=== PATIENT | male | born 1970 | race Two or more races ===

== ENCOUNTER 2020-05-03 11:43 | Outpatient (REF) | payer OTHER, SELFPAY | END 2020-05-03 11:44 | disposition home or self-care (01) | LOC: HO.LAB 11:43 | PROVIDERS: Visit Provider Internal Medicine | DX: Z20.828 Contact with and (suspected) exposure to other viral communicable diseases (principal) | CPT/HCPCS: C9803; U0003 ==

== ENCOUNTER 2020-05-23 06:17 | Outpatient (REF) | payer OTHER, SELFPAY | END 2020-05-23 06:18 | disposition home or self-care (01) | LOC: HO.LAB 06:17 | PROVIDERS: Visit Provider Internal Medicine | DX: Z20.828 Contact with and (suspected) exposure to other viral communicable diseases (principal) | CPT/HCPCS: C9803; U0003 ==

== ENCOUNTER 2023-11-04 08:54 | Outpatient (REF) | payer OTHER, SELFPAY ==
[2023-11-04 14:17] LABS: MANUAL DIFF FLAG NO
[2023-11-04 14:30] LABS: Basophils Percent Auto 0.7 % (0-2); Eosinophils Absolute Auto 0.1 X10*3/uL (0.0-0.4); Hematocrit 40.7 % (42.0-52.0); Hemoglobin 13.9 g/dl (14.0-18.0); Imm Gran Abs Auto 0.01 X10*3/uL (0.00-0.03); Imm Gran Pct Auto 0.2 % (0.0-0.4); Lymphocytes Absolute Auto 1.7 X10*3/uL (1.2-4.9); Lymphocytes Percent Auto 38.6 % (20-40); Mean Corpuscular HGB Conc 34.2 g/dl (31.0-36.0); Mean Corpuscular Hemoglobin 29.8 pg (27.0-33.0); Mean Corpuscular Volume 87.3 fL (80.0-98.0); Mean Platelet Volume 10.2 fL (9.4-12.4); Monocytes Absolute Auto 0.5 X10*3/uL (0.1-1.2); Monocytes Percent Auto 11.2 % (2-11); Neutrophils Percent Auto 46.3 % (45-73); Platelet Count 244 X10*3/uL (160-400); Red Blood Count 4.66 X10*6/uL (4.60-5.80); White Blood Count 4.3 X10*3/uL (4.8-10.8)
[2023-11-04 14:37] LABS: Estimated Average Glucose 114 mg/dL; Hemoglobin A1c % 5.6 % (<6.0)
[2023-11-04 15:02] LABS: Alanine Aminotransferase 35 U/L (0-40); Albumin Level 4.1 g/dL (3.5-5.0); Alkaline Phosphatase 68 U/L (39-117); Anion Gap 16 (12-20); Aspartate Amino Transferase 33 U/L (5-37); Bilirubin Total 0.4 mg/dL (0.0-1.0); Blood Urea Nitrogen 12 mg/dL (9-16); Calcium 9.3 mg/dL (8.4-10.2); Carbon Dioxide 21 mmol/L (22-29); Chloride 105 mmol/L (96-108); Cholesterol 215 mg/dL (<200); Estimated Glomerular Filt Rate > 60; Glucose Random 144 mg/dL (60-115); HDL Cholesterol 33 mg/dL (>40); LDL Cholesterol Calculated 149 mg/dL (<100); Potassium 3.9 mmol/L (3.3-5.1); Sodium 138 mmol/L (135-145); Total Protein 7.3 g/dL (6.5-8.0); Triglycerides 167 mg/dL (<150)
[2023-11-04 15:20] LABS: TSH reflex Free T4 1.81 uIU/mL (0.32-4.0)
[2023-11-04 15:25] LABS: Prostate Specific Antigen 0.69 ng/mL (<0.05-4.0)
[2023-11-05 04:32] LABS: ~HepC Num1 0.15 S/CO (0.00-0.79); ~Hepatitis C Antibody Nonreactive (Nonreactive)
[2023-11-07 18:08] LABS: HIV RNA PCR Qn Copies Not Detected Copies/mL; HIV RNA PCR Qn Log Copies Not Detected Log cps/mL
[2023-11-08 17:02] LABS: Testosterone, Free 63.7 pg/mL (35.0-155.0); Testosterone, Total 299 ng/dL (250-1100)
== END 2023-11-04 08:55 | disposition home or self-care (01) ==
LOC: HO.CHCLDS 08:54
PROVIDERS: Visit Provider Internal Medicine
DX: Z12.5 Encounter for screening for malignant neoplasm of prostate (principal); E66.3 Overweight; R53.83 Other fatigue; C61 Malignant neoplasm of prostate
CPT/HCPCS: 36415; 80053; 80061; 83036; 84153; 84402; 84403; 84443; 85025; 86803; 87536; 87900

== ENCOUNTER 2024-01-08 11:10 | Outpatient (AMB) | payer MEDICAID, SELFPAY ==
--- NOTE | 2024-01-08 07:58 | MHC.OFFVIS ---
Intake Visit Reasons: Former Smoker Allergies No Known Allergies Allergy (Unverified 03/15/20 16:14) HPI HPI Former Smoker: Details: Initial visit for this 53yo former smoker with a 30+PYH. Patient started smoking at age 15 for 38 years at 1ppd. He quit 12/07/2023 - using Chantix. . Denies marijuana use. Denies second hand smoke exposure. Denies exposure to chemicals or substances like asbestos. . Denies known family history of lung cancer. Denies personal history of cancers. Denies chest CT in last year. . Denies recent travel outside the [place]. Denies recent respiratory illness or recent hospitalization for respiratory issues. Denies testing positive for COVID. Admits receiving COVID Vaccine. . Denies fever, chills, new/worsening cough, hemoptysis, hoarseness or dysphagia. Denies significant chest pain, significant dyspnea or unintentional weight loss. Patient Lung Cancer Screening Questionnaire reviewed with patient by provider. . Shared Decision Making Completed. Patient meets criteria. Discussed in detail with patient, the risk vs benefit of LDCT screening. Patient consents to proceed with scan. Discussed and encouraged continued smoking cessation. [facility] Medical History (Updated 01/08/24 @ 11:35 by Jade Landrum PA-C) Nicotine dependence, cigarettes, uncomplicated Surgical History (Updated 12/03/23 @ 10:07 by Jade Landrum PA-C) History of cholecystectomy Social History (Updated 01/08/24 @ 11:35 by Jade Landrum PA-C) Patient Tobacco Use Status: Former Tobacco user Tobacco use type: Cigarette Years Smoked: (onset 15yo, 1ppd x 38yrs, 30+PYH -quit 12/07/23) Assessment & Plan Assessment & Plan (1) Nicotine dependence, cigarettes, uncomplicated: Comment: (recently quit - onset 15yo, 1ppd x 38yrs, 30+PYH - quit 11/2023) Code(s): F17.210 - Nicotine dependence, cigarettes, uncomplicated Category: Medical Plan: - SDM visit completed today in office. - Patient meets criteria for LDCT for lung cancer screening purposes and is asymptomatic. - Smoking cessation counseling offered. Patients can always call [phone]. - Will arrange for a LDCT scan of the chest for screening purposes at [facility]. - Risks, benefits, and alternatives were discussed in detail and the patient agrees to proceed. - Risks discussed include but are not limited to: radiation exposure, anxiety during testing and while awaiting results, false negatives, false positives and possibility of additional intervention such as further imaging or surgical procedures for benign disease. - Benefits are obviously detection of lung cancer at an early stage which can lead to improved outcomes. - Discussed the importance of screening program compliance with adherence to yearly LDCT scan as scheduled - or sooner interval scans for personalized screening regimen. - Discussed follow up plan. Our office will send a letter discussing results and if needed set up phone call and office visit based on CT findings. - Patient educated on results categorization and the management decisions for suspicious findings potentially found on the screening LDCT scan. Any patient with a Lung RADS score of 3 or 4 will be reviewed by a multidisciplinary team at [facility] to form a plan of action in regards to scan findings. - If further work up is warranted for a suspicious lung finding this will be followed by the Lung Cancer Screening program in conjunction with the Thoracic Surgery Department at [facility]. - A copy of the office note and LDCT will be sent to the patient's PCP - as well as documentation on any associated further plans of care. - Incidental findings on LDCT are the PCP's responsibility. These findings are indicated with an S finding on the LDCT Assessment. A note discussing the findings will be sent to the PCP who is then responsible for further management. - All questions answered.? Coding Level of Care Code Lung Cancer Screening G0296 Diagnoses Nicotine dependence, cigarettes, uncomplicated F17.210
== END 2024-01-08 13:07 | disposition home or self-care (01) ==
PROVIDERS: Referring Provider Internal Medicine; Visit Provider Physician Assistant Medical
DX: F17.210 Nicotine dependence, cigarettes, uncomplicated (principal); Z87.891 Personal history of nicotine dependence
CPT/HCPCS: G0296

== ENCOUNTER 2024-01-08 11:33 | Outpatient (REF) | payer MEDICAID, SELFPAY ==
--- NOTE | ~2024-01-08 | CT_ITS ---
EXAMINATION: CT LOW-DOSE SCREENING CHEST WITHOUT CONTRAST CLINICAL INFORMATION: Personal history of nicotine dependence. The patient has a 68 pack-year history of smoking, having quit 3 years ago. COMPARISON: None available. TECHNIQUE: Multidetector volumetric CT imaging of the chest is performed on a Siemens SOMATOM Definition scanner without contrast using low dose technique. Additional 2D coronal and sagittal reformatted images and axial 3D maximum intensity projection (MIP) images are generated on the CT workstation. This CT examination was performed using dose optimization techniques as appropriate, variously including the following: *Automated exposure control *Adjustment of mA and/or kV according to patient size (this includes techniques or standardized protocols for targeted exams where dose is matched to indication/reason for exam; i.e. extremities or head) *Use of iterative reconstruction technique TOTAL EXAM DLP: 61 mGy-cm. CTDIvol: 1.75 mGy. Please note, due to [facility] contractual, systems, and staffing issues, a radiologist was not available for review and dictation until 02/16/2024. FINDINGS: PULMONARY NODULES: -3 mm nodule anterior right upper lobe, (series 5, image 129). -2 mm nodule posterior right upper lobe (series 5, image 310). -3 mm nodule medial right middle lobe (series 5, image 328). -3 mm nodule lateral left upper lobe (series 5, image 96). -2 mm nodule anterior left upper lobe (series 5, image 131). -3 mm groundglass nodule lateral posterior left upper lobe (series 5, image 163). -3 mm nodule left lower lobe laterally (series 5, image 332). -2 mm calcified granuloma posterior left lower lobe, (series 5, image 340). LUNGS: -Lungs well inspired and clear bilaterally. No consolidations or groundglass opacities. -No pleural effusions or pleural masses. -Central and small airways normal. MEDIASTINUM: -No abnormal lymphadenopathy. -Aorta is normal in caliber and course with minimal calcification. No aneurysm. -Main pulmonary artery is mildly prominent but otherwise normal. -Heart size is normal. No pericardial effusion. -There is mild thickening of the most distal esophagus which leads into a small type I hiatus hernia. This may suggest esophagitis. CORONARY ARTERY CALCIFICATION: Moderate left main, circumflex, and LAD calcifications. Mild RCA calcifications. THYROID GLAND: Unremarkable to the extent seen. CHEST WALL/AXILLA: Unremarkable. UPPER ABDOMEN: -Cholecystectomy. -No additional abnormalities allowing for limitations of low-dose technique. OSSEOUS STRUCTURES: No suspicious focal findings. CT/CT lung screening IMPRESSION: 1. A few scattered bilateral pulmonary nodules measuring up to 3 mm, statistically benign with less than 1% chance of malignancy. 2. No active lung disease. 3. Small type I hiatus hernia, with mild thickening of the distal esophagus, which could represent mild esophagitis. 4. No lymphadenopathy. 5. Additional ancillary findings as discussed in the body of the report. ASSESSMENT: 1. Lung-RADS Category 2: Benign appearance or behavior of nodules. 2. Lung-RADS Category S: None. RECOMMENDATION: Continued routine annual low-dose CT lung screening in 1 year is recommended. An order for CT CHEST LOW DOSE CANCER SCREENING ([id number]) can be placed.
== END 2024-01-08 11:34 | disposition home or self-care (01) ==
LOC: HO.CT 11:33
PROVIDERS: Visit Provider Physician Assistant Medical
DX: Z12.2 Encounter for screening for malignant neoplasm of respiratory organs (principal); Z87.891 Personal history of nicotine dependence
CPT/HCPCS: 71271; G0296

== ENCOUNTER → 2024-01-08 11:33 | Outpatient (BNV) | payer MEDICAID, SELFPAY | PROVIDERS: Visit Provider Radiology Diagnostic Radiology | DX: Z87.891 Personal history of nicotine dependence (principal) | CPT/HCPCS: 71271 ==

== ENCOUNTER 2024-03-10 15:00 | Outpatient (RCR) | payer MEDICAID, SELFPAY ==
--- NOTE | 2024-03-22 15:28 | MHC.PT.DC ---
[facility] [place] Office [place] Office [place] Office [address] Mary Brand [address] [phone] F: [phone] F: [phone] F: [phone] F: [phone] Physical Therapy Discharge Report Diagnosis: This is a 54 yo male presenting to skilled PT with a script for R knee pain. Date of Surgery: Date of Evaluation: 03/01/24 Date of Discharge: 03/22/24 Treatments to Date: 2 Cancellations to Date: 0 No Shows to Date: 0 Discharge Status: Visit Non-compliance Discharge Summary: no show/no call x4 visits. DC due to poor visit compliance and attendance policy Electronically signed by: Laquita Morris PT Please sign and return to therapist. Thank you for your referral.
== END 2024-03-22 15:28 | disposition home or self-care (01) ==
LOC: HO.PTCHIC 15:00
PROVIDERS: PCP Internal Medicine; Visit Provider Internal Medicine
DX: M25.561 Pain in right knee (principal)
CPT/HCPCS: 97110; 97162

== ENCOUNTER 2024-05-16 13:58 | Outpatient (RCR) | payer MEDICAID, SELFPAY ==
--- NOTE | 2024-04-26 16:07 | MHC.PT.EP ---
[facility] [place] Office [place] Office [place] Office [address] Mary Brand [address] [phone] F: [phone] F: [phone] F: [phone] F: [phone] Physical Therapy Plan of Care Date of Evaluation: 04/26/24 Date of Surgery: Diagnosis: R knee pain (per MD) Assessment: Maury is a 54 yo male who was referred by Dr. Jonathan Moon MD for Dx of chronic pain in right knee. Impairments include decreased and painful R knee ROM, weakness of R hip and knee, feeling unstable in the knee, and antalgic gait pattern resulting in his inability to bend, squat, navigate stairs, or ambulate for prolonged periods of time. These deficits are impacting his ability to participate in working in the [employer], exercising in the gym, and household ADLs. Pt will benefit from skilled PT to address impairments and meet their goals. Frequency and Duration: The patient will be seen 2x/week for 4 weeks Short Term Goals: 2 weeks Patient will be able to perform HEP to independently manage condition. Long-Term Goals: 4 weeks Patient will be able to increase R hip strength to 4/5 to navigate a flight of stairs reciprocally without limitation. Patient will be able to increase R knee extension ROM to 0 degrees to ambulate 150 ft without compensatory gait pattern. Treatment Plan: Modalities to reduce pain, spasms and effusion. Manual therapy to restore motion and function. Therapeutic exercise to improve strength and flexibility. Neuromuscular re-education for posture and balance. Therapeutic activities to return to functional activities of daily living. Electronically signed by: Carolynn Ortiz, PT, DPT Please sign and return to therapist. Thank you for your referral.
== END 2024-07-15 09:27 | disposition home or self-care (01) ==
LOC: HO.PT 13:58
PROVIDERS: PCP Internal Medicine; Visit Provider Internal Medicine
DX: M25.561 Pain in right knee (principal); G89.29 Other chronic pain
CPT/HCPCS: 97110; 97161; 97530

== ENCOUNTER 2024-07-14 14:05 | Outpatient (REF) | payer MEDICAID, SELFPAY ==
[2024-07-14 18:10] LABS: Alanine Aminotransferase 64 U/L (0-40); Albumin Level 4.3 g/dL (3.5-5.0); Alkaline Phosphatase 70 U/L (39-117); Anion Gap 9 (12-20); Aspartate Amino Transferase 39 U/L (5-37); Bilirubin Total 0.4 mg/dL (0.0-1.0); Blood Urea Nitrogen 11 mg/dL (9-16); Calcium 9.6 mg/dL (8.4-10.2); Carbon Dioxide 25 mmol/L (22-29); Chloride 110 mmol/L (96-108); Cholesterol 219 mg/dL (<200); Estimated Glomerular Filt Rate > 60; Glucose Random 85 mg/dL (60-115); HDL Cholesterol 31 mg/dL (>40); LDL Cholesterol Calculated 147 mg/dL (<100); Potassium 4.1 mmol/L (3.3-5.1); Sodium 140 mmol/L (135-145); Total Protein 8.2 g/dL (6.5-8.0); Triglycerides 206 mg/dL (<150)
== END 2024-07-14 14:06 | disposition home or self-care (01) ==
LOC: HO.CHCLDS 14:05
PROVIDERS: Visit Provider Internal Medicine
DX: E78.2 Mixed hyperlipidemia (principal)
CPT/HCPCS: 36415; 80053; 80061